=== PATIENT | female | born 1995 | race Caucasian/White ===

== ENCOUNTER 2017-11-23 20:37 | Emergency (ER) | payer BC, OTHER ==
[~2017-11-23] VITALS: Ht 157.5 cm; Wt 70.0 kg
[~2017-11-23 20:37] MED LIST: HYDR-3533 PO; IBUP800T23 PO
[2017-11-23 20:52] VITALS: BP 138/90; PULSE 80; RESP 20; TEMP 98.4; O2SAT 99
--- NOTE | 2017-11-23 21:23 | PD ---
HPI Chief Complaint: Musculoskeletal Complaint Time Seen by Provider: 21:11 Travel History International Travel<30 days: No Contact w/Intl Traveler<30days: No Traveled to known affect area: No History of Present Illness HPI 22-year-old female patient presents to the ER today for one-week history of right hip area pains and paresthesias on her right leg which occur intermittently. She states that she had injured her ankle 2 years ago and states that sometimes it bothers her to walk on it on the right side and she thinks that may be aggravating the issue. She denies any other issues or new injuries. Modifying Factors: None Associated Signs & Symptoms: Right hip pain with paresthesias in the right leg Risk Factors: None History Past Medical Histgory Medical History: Denies Significant Hx Tetanus Vaccination: Unknown LMP: 11/09/17 Past Surgical History Surgical History: No Previous Surgery Social History Alcohol Use: No Tobacco Use: No Allergies-Medications (Allergen,Severity, Reaction): Coded Allergies: No Known Allergies (Verified Adverse Reaction, Unknown, 11/23/17) Reported Meds & Prescriptions Reported Meds & Active Scripts Active Review of Systems Except as stated in HPI: all other systems reviewed are Neg Physical Exam Narrative GENERAL: Well-nourished, well-developed young female patient in no acute distress. Awake and oriented 3. SKIN: Focused skin assessment warm/dry. HEAD: Normocephalic. EYES: No scleral icterus. No injection or drainage. NECK: Supple, trachea midline. No JVD or lymphadenopathy. CARDIOVASCULAR: Regular rate and rhythm without murmurs, gallops, or rubs. RESPIRATORY: Breath sounds equal bilaterally. No accessory muscle use. GASTROINTESTINAL: Abdomen soft, non-tender, nondistended. Pelvis: Pelvis is stable and nontender to palpation. The right hip is nontender to palpation. Nontender range of motion of the right hip. Neurovascularly intact at this time. EXTREMITIES: No clubbing, cyanosis, or edema. No joint tenderness, effusion, or edema noted. No calf tenderness. Bilateral Homans sign negative. MUSCULOSKELETAL: No cyanosis, or edema. BACK: Nontender without obvious deformity. No CVA tenderness. Data Data Last Documented VS Vital Signs Date Time Temp Pulse Resp B/P (MAP) Pulse Ox O2 Delivery O2 Flow Rate FiO2 11/23/17 20:52 98.4 80 20 138/90 (106) 99 MDM Medical Screen Exam Complete: Yes Emergency Medical Condition: Yes Differential Diagnosis Radiculopathy versus groin strain Narrative Course At this point, I do not suspect an acute underlying fracture. She is neurovascularly intact. There are no signs of infection. There are no signs of she has not had any injuries. She is not on OCPs, no recent long trips, no family history of blood clots, and I do not think that this is a DVT. She can take [id number] ibuprofen for the discomfort. I would recommend that she stays off the leg and avoids tight fitting shorts which she is currently wearing and states she wears on a regular basis which could be compressing this area and causing some irritation as well. She should return for any new issues as needed. A medical screening exam was done and at this point, I do not see any signs of acute medical emergency. Patient to return should any changes occur. Primary Impression: Right hip pain Additional Instructions: He should follow-up with your primary care physician regarding this ongoing issue. Return for any worsening in pain or new symptoms as needed. Disposition: [facility]-ED USE ONLY Condition: Stable Venessa Rao MD Nov 23, 2017 21:23
== END 2017-11-23 21:21 | disposition left against medical advice (07) ==
LOC: PHEFT 20:37
DX: M25.551 Pain in right hip (principal)
CPT/HCPCS: 99281